=== PATIENT | male | born 1960 | race Caucasian/White ===

== ENCOUNTER 2017-05-12 10:36 | Outpatient (RCR) | payer OTHER | END 2017-05-12 11:30 | disposition home or self-care (01) | LOC: PT 10:36 | DX: M67.912 Unspecified disorder of synovium and tendon, left shoulder (principal) | CPT/HCPCS: G8985-GP ==

== ENCOUNTER 2018-03-21 10:24 | Outpatient (RCR) | payer MEDICARE, OTHER | END 2018-06-19 | disposition home or self-care (01) | LOC: PT | DX: R25.2 Cramp and spasm (principal); R26.89 Other abnormalities of gait and mobility | CPT/HCPCS: G8978-GP; G8979-GP ==

== ENCOUNTER 2018-06-27 08:52 | Emergency (ER) | payer MEDICARE, OTHER ==
[~2018-06-27] VITALS: Ht 182.9 cm; Wt 96.8 kg
[2018-06-27] MEDS ORDERED: BUSPIRONE HCL7.5 MG PO (09:20)
[2018-06-27] MEDS ORDERED: FLOMAX0.4 MG PO (09:20)
[2018-06-27] MEDS ORDERED: ASPIR LOW81 MG PO (09:20)
[2018-06-27] MEDS ORDERED: ALPRAZOLAM0.5 MG PO (09:21)
[2018-06-27 09:31] LABS: EOS # 0.1 (0.04-0.40); EOS % 2.8 % (0.0-4.0); HEMATOCRIT 47.7 % (42.0-52.0); HEMOGLOBIN 16.7 g/dL (13.5-18.0); LYMPH# 1.4 (1.50-4.00); MEAN CELL VOLUME 92 fl (78-100); MEAN CORPUSCULAR HEMOGLOBIN 32 pg (27-31); MEAN CORPUSCULAR HGB CONC 35 g/dL (33-37); MEAN PLATELET VOLUME 9.2 fl (7.4-10.4); MONO # 0.5 (0.20-0.80); NEU # 2.8 (1.40-6.50); PLATELET COUNT 129 K/mm3 (130-400); RED BLOOD COUNT 5.16 M/mm3 (4.20-5.60); RED CELL DISTRIBUTION WIDTH 12.5 % (11.5-14.5); WHITE BLOOD COUNT 4.9 K/mm3 (4.8-10.8)
[2018-06-27 09:41] LABS: CALCIUM 9.1 mg/dL (8.4-10.2); POTASSIUM 3.6 mmol/L (3.6-5.0); TOTAL BILIRUBIN 0.4 mg/dL (0.2-1.3)
[2018-06-27 10:27] VITALS: BP 151/83
== END 2018-06-27 10:41 | disposition short-term general hospital (02) ==
LOC: ED 08:52
PROVIDERS: Nurse Practitioner Primary Care
DX: I63.9 Cerebral infarction, unspecified (principal); F41.9 Anxiety disorder, unspecified; G47.00 Insomnia, unspecified; Z79.899 Other long term (current) drug therapy; Z85.6 Personal history of leukemia; Z85.72 Personal history of non-Hodgkin lymphomas; Z92.21 Personal history of antineoplastic chemotherapy

== ENCOUNTER → 2019-12-12 | Outpatient (CLI) | payer MEDICARE, OTHER ==
[~2019-12-12] MED LIST: ALPRAZOLAM0.5 MG PO; ASPIR LOW81 MG PO; BUSPIRONE HCL7.5 MG PO; FLOMAX0.4 MG PO
== END ==
LOC: LAB 09:36
DX: J30.1 Allergic rhinitis due to pollen (principal)

== ENCOUNTER → 2020-02-02 | Outpatient (CLI) | payer MEDICARE ==
[2020-02-02 09:08] LABS: HEMATOCRIT 44.3 % (42.0-52.0); HEMOGLOBIN 15.5 g/dL (13.5-18.0)
== END ==
LOC: LAB 08:59
DX: R79.89 Other specified abnormal findings of blood chemistry (principal)

== ENCOUNTER → 2020-02-09 | Outpatient (CLI) | payer MEDICARE ==
[2020-02-09 13:11] LABS: EOS # 0.1 (0.04-0.40); EOS % 1.6 % (0.0-4.0); HEMATOCRIT 41.2 % (42.0-52.0); HEMOGLOBIN 14.2 g/dL (13.5-18.0); LYMPH# 1.5 (1.50-4.00); MEAN CELL VOLUME 95 fl (78-100); MEAN CORPUSCULAR HEMOGLOBIN 33 pg (27-31); MEAN CORPUSCULAR HGB CONC 35 g/dL (33-37); MEAN PLATELET VOLUME 9.1 fl (7.4-10.4); MONO # 0.6 (0.20-0.80); NEU # 2.9 (1.40-6.50); PLATELET COUNT 137 K/mm3 (130-400); RED BLOOD COUNT 4.33 M/mm3 (4.20-5.60); RED CELL DISTRIBUTION WIDTH 13.4 % (11.5-14.5); WHITE BLOOD COUNT 5.1 K/mm3 (4.8-10.8)
[2020-02-09 13:44] LABS: ALBUMIN 3.9 g/dL (3.5-5.0); POTASSIUM 4.1 mmol/L (3.5-5.1)
[2020-02-09 13:45] LABS: CALCIUM 8.4 mg/dL (8.3-10.5)
[2020-02-09 13:46] LABS: TOTAL PROTEIN 5.5 g/dL (6.4-8.3)
[2020-02-09 13:48] LABS: TOTAL BILIRUBIN 0.3 mg/dL (0.2-1.2)
[2020-02-09 22:22] LABS: IMMUNOGLOBULIN A <5 mg/dL (63-484); IMMUNOGLOBULIN G <340 mg/dL (540-1822)
[2020-02-09 22:58] LABS: IGM,SERUM 114 mg/dL (22-240)
== END ==
LOC: LAB 12:59
DX: E03.9 Hypothyroidism, unspecified (principal); D69.6 Thrombocytopenia, unspecified

== ENCOUNTER → 2020-02-16 | Outpatient (CLI) | payer MEDICARE ==
[2020-02-16 09:15] LABS: HEMATOCRIT 40.7 % (42.0-52.0)
== END ==
LOC: LAB 09:02
DX: R79.89 Other specified abnormal findings of blood chemistry (principal)

== ENCOUNTER → 2020-03-01 | Outpatient (CLI) | payer MEDICARE ==
[2020-03-01 09:23] LABS: HEMATOCRIT 42.9 % (42.0-52.0); HEMOGLOBIN 14.8 g/dL (13.5-18.0); MEAN CELL VOLUME 95 fl (78-100); MEAN CORPUSCULAR HEMOGLOBIN 33 pg (27-31); MEAN CORPUSCULAR HGB CONC 35 g/dL (33-37); MEAN PLATELET VOLUME 8.8 fl (7.4-10.4); PLATELET COUNT 147 K/mm3 (130-400); RED CELL DISTRIBUTION WIDTH 13.2 % (11.5-14.5); WHITE BLOOD COUNT 4.4 K/mm3 (4.8-10.8)
[2020-03-01 09:34] LABS: ALBUMIN 4.4 g/dL (3.5-5.0)
[2020-03-01 09:35] LABS: POTASSIUM 4.1 mmol/L (3.5-5.1)
[2020-03-01 09:36] LABS: CALCIUM 9.2 mg/dL (8.3-10.5)
[2020-03-01 09:37] LABS: TOTAL PROTEIN 6.2 g/dL (6.4-8.3)
[2020-03-01 09:39] LABS: TOTAL BILIRUBIN 0.6 mg/dL (0.2-1.2)
[2020-03-01 09:43] LABS: LYMPHOCYTE 39 % (20-51); MONOCYTE 9 % (3-10); NEUTROPHILS 50 % (42-75)
[2020-03-01 23:23] LABS: IGM,SERUM 123 mg/dL (22-240); IMMUNOGLOBULIN A <5 mg/dL (63-484); IMMUNOGLOBULIN G <340 mg/dL (540-1822)
== END ==
LOC: LAB 09:06
DX: E03.9 Hypothyroidism, unspecified (principal); R79.89 Other specified abnormal findings of blood chemistry

== ENCOUNTER → 2020-03-08 | Outpatient (CLI) | payer MEDICARE ==
[2020-03-08 09:19] LABS: EOS # 0.1 (0.04-0.40); EOS % 1.8 % (0.0-4.0); HEMATOCRIT 41.6 % (42.0-52.0); HEMOGLOBIN 14.3 g/dL (13.5-18.0); LYMPH# 1.3 (1.50-4.00); MEAN CELL VOLUME 95 fl (78-100); MEAN CORPUSCULAR HEMOGLOBIN 33 pg (27-31); MEAN CORPUSCULAR HGB CONC 34 g/dL (33-37); MEAN PLATELET VOLUME 8.9 fl (7.4-10.4); MONO # 0.4 (0.20-0.80); NEU # 2.2 (1.40-6.50); PLATELET COUNT 148 K/mm3 (130-400); RED BLOOD COUNT 4.37 M/mm3 (4.20-5.60); RED CELL DISTRIBUTION WIDTH 12.9 % (11.5-14.5)
[2020-03-08 09:32] LABS: ALBUMIN 4.2 g/dL (3.5-5.0); POTASSIUM 4.2 mmol/L (3.5-5.1)
[2020-03-08 09:33] LABS: CALCIUM 9.1 mg/dL (8.3-10.5)
[2020-03-08 09:35] LABS: TOTAL PROTEIN 5.8 g/dL (6.4-8.3)
[2020-03-08 09:36] LABS: TOTAL BILIRUBIN 0.5 mg/dL (0.2-1.2)
[2020-03-09 00:26] LABS: IGM,SERUM 110 mg/dL (22-240); IMMUNOGLOBULIN G <340 mg/dL (540-1822)
[2020-03-09 07:36] LABS: IMMUNOGLOBULIN A <5 mg/dL (63-484)
== END ==
LOC: LAB 09:06
DX: C83.71 Burkitt lymphoma, lymph nodes of head, face, and neck (principal); R79.89 Other specified abnormal findings of blood chemistry

== ENCOUNTER → 2020-03-22 | Outpatient (CLI) | payer MEDICARE ==
[2020-03-22 09:32] LABS: EOS # 0.1 (0.04-0.40); EOS % 2.7 % (0.0-4.0); HEMATOCRIT 43.4 % (42.0-52.0); HEMOGLOBIN 14.8 g/dL (13.5-18.0); LYMPH# 1.6 (1.50-4.00); MEAN CELL VOLUME 95 fl (78-100); MEAN CORPUSCULAR HEMOGLOBIN 32 pg (27-31); MEAN CORPUSCULAR HGB CONC 34 g/dL (33-37); MEAN PLATELET VOLUME 9.2 fl (7.4-10.4); MONO # 0.6 (0.20-0.80); NEU # 2.5 (1.40-6.50); PLATELET COUNT 162 K/mm3 (130-400); RED BLOOD COUNT 4.58 M/mm3 (4.20-5.60); RED CELL DISTRIBUTION WIDTH 12.7 % (11.5-14.5); WHITE BLOOD COUNT 4.9 K/mm3 (4.8-10.8)
== END ==
LOC: LAB 09:05
DX: D69.6 Thrombocytopenia, unspecified (principal); R79.89 Other specified abnormal findings of blood chemistry

== ENCOUNTER → 2020-04-24 | Outpatient (CLI) | payer MEDICARE ==
[2020-04-24 07:27] LABS: EOS # 0.1 (0.04-0.40); EOS % 2.3 % (0.0-4.0); HEMATOCRIT 47.3 % (42.0-52.0); HEMOGLOBIN 15.9 g/dL (13.5-18.0); LYMPH# 1.9 (1.50-4.00); MEAN CELL VOLUME 93 fl (78-100); MEAN CORPUSCULAR HEMOGLOBIN 31 pg (27-31); MEAN CORPUSCULAR HGB CONC 34 g/dL (33-37); MEAN PLATELET VOLUME 9.2 fl (7.4-10.4); MONO # 0.6 (0.20-0.80); NEU # 2.6 (1.40-6.50); PLATELET COUNT 151 K/mm3 (130-400); RED CELL DISTRIBUTION WIDTH 12.4 % (11.5-14.5); WHITE BLOOD COUNT 5.2 K/mm3 (4.8-10.8)
== END ==
LOC: LAB 07:09
DX: D69.6 Thrombocytopenia, unspecified (principal); R79.89 Other specified abnormal findings of blood chemistry

== ENCOUNTER → 2020-05-27 | Outpatient (CLI) | payer MEDICARE ==
[2020-05-27 07:32] LABS: EOS # 0.1 (0.04-0.40); EOS % 2.4 % (0.0-4.0); HEMATOCRIT 48.6 % (42.0-52.0); HEMOGLOBIN 16.5 g/dL (13.5-18.0); LYMPH# 1.8 (1.50-4.00); MEAN CELL VOLUME 89 fl (78-100); MEAN CORPUSCULAR HEMOGLOBIN 30 pg (27-31); MEAN CORPUSCULAR HGB CONC 34 g/dL (33-37); MEAN PLATELET VOLUME 9.4 fl (7.4-10.4); MONO # 0.5 (0.20-0.80); NEU # 2.6 (1.40-6.50); PLATELET COUNT 155 K/mm3 (130-400); RED BLOOD COUNT 5.45 M/mm3 (4.20-5.60); RED CELL DISTRIBUTION WIDTH 12.6 % (11.5-14.5); WHITE BLOOD COUNT 5.1 K/mm3 (4.8-10.8)
[2020-05-27 07:52] LABS: ALBUMIN 4.3 g/dL (3.5-5.0); POTASSIUM 4.5 mmol/L (3.5-5.1)
[2020-05-27 07:54] LABS: CALCIUM 9.1 mg/dL (8.3-10.5)
[2020-05-27 07:55] LABS: TOTAL PROTEIN 6.2 g/dL (6.4-8.3)
[2020-05-27 07:57] LABS: TOTAL BILIRUBIN 0.2 mg/dL (0.2-1.2)
[2020-05-27 19:40] LABS: IGM,SERUM 117 mg/dL (22-240); IMMUNOGLOBULIN A <5 mg/dL (63-484); IMMUNOGLOBULIN G <340 mg/dL (540-1822)
[2020-05-30 11:58] LABS: A/G RATIO (PEP) 1.81 (()); BETA GLOBULINS (PEP) 0.7 g/dL (0.7-1.2)
== END ==
LOC: LAB 07:04
PROVIDERS: Obstetrics & Gynecology
DX: C83.71 Burkitt lymphoma, lymph nodes of head, face, and neck (principal)

== ENCOUNTER → 2020-06-03 | Outpatient (CLI) | payer MEDICARE ==
[2020-06-03 10:22] LABS: HEMATOCRIT 47.2 % (42.0-52.0); HEMOGLOBIN 16.1 g/dL (13.5-18.0)
== END ==
LOC: LAB 10:03
DX: R79.89 Other specified abnormal findings of blood chemistry (principal)

== ENCOUNTER → 2020-06-06 | Outpatient (CLI) | payer MEDICARE ==
[~2020-06-06] MED LIST changes: +FISH OIL1 IU PO; +MIRALAX17 GM PO; +NEURONTIN100 M1 PO; +PANTOPRAZOLE SO20 M1 PO; +VITAMIN C PUR1000 MG PO; +VITAMIN D350 MCG PO; +ZINC50 M4 PO
[2020-06-06 10:29] LABS: ALBUMIN 4.4 g/dL (3.5-5.0)
[2020-06-06 10:30] LABS: POTASSIUM 4.3 mmol/L (3.5-5.1)
[2020-06-06 10:31] LABS: CALCIUM 9.2 mg/dL (8.3-10.5)
[2020-06-06 10:32] LABS: TOTAL PROTEIN 6.3 g/dL (6.4-8.3)
[2020-06-06 10:34] LABS: HEMATOCRIT 46.1 % (42.0-52.0); HEMOGLOBIN 15.6 g/dL (13.5-18.0); MEAN CELL VOLUME 89 fl (78-100); MEAN CORPUSCULAR HEMOGLOBIN 30 pg (27-31); MEAN CORPUSCULAR HGB CONC 34 g/dL (33-37); MEAN PLATELET VOLUME 9.8 fl (7.4-10.4); PLATELET COUNT 143 K/mm3 (130-400); RED CELL DISTRIBUTION WIDTH 12.8 % (11.5-14.5); TOTAL BILIRUBIN 0.4 mg/dL (0.2-1.2); WHITE BLOOD COUNT 4.9 K/mm3 (4.8-10.8)
[2020-06-06 11:05] LABS: LYMPHOCYTE 28 % (20-51); MONOCYTE 8 % (3-10); NEUTROPHILS 56 % (42-75)
[2020-06-06 21:51] LABS: FOLLICLE STIMULATING HORMONE 17.7 mIU/mL (1.0-12.0); LUTENIZING HORMONE 4.8 mIU/mL (0.6-12.1)
== END ==
LOC: LAB 09:45
PROVIDERS: Internal Medicine
DX: I67.3 Progressive vascular leukoencephalopathy (principal); K90.9 Intestinal malabsorption, unspecified; N52.9 Male erectile dysfunction, unspecified; E03.9 Hypothyroidism, unspecified; R50.9 Fever, unspecified

== ENCOUNTER → 2020-06-18 | Outpatient (CLI) | payer MEDICARE ==
[~2020-06-18] MED LIST changes: -FISH OIL1 IU PO; -MIRALAX17 GM PO; -NEURONTIN100 M1 PO; -PANTOPRAZOLE SO20 M1 PO; -VITAMIN C PUR1000 MG PO; -VITAMIN D350 MCG PO; -ZINC50 M4 PO
[2020-06-18 11:47] LABS: HEMATOCRIT 44.7 % (42.0-52.0)
== END ==
LOC: LAB 11:32
PROVIDERS: Internal Medicine
DX: E83.110 Hereditary hemochromatosis (principal); N52.9 Male erectile dysfunction, unspecified

== ENCOUNTER → 2020-08-23 | Outpatient (CLI) | payer MEDICARE ==
[~2020-08-23] MED LIST changes: +FISH OIL1 IU PO; +MIRALAX17 GM PO; +NEURONTIN100 M1 PO; +PANTOPRAZOLE SO20 M1 PO; +VITAMIN C PUR1000 MG PO; +VITAMIN D350 MCG PO; +ZINC50 M4 PO
[2020-08-23 12:59] LABS: HEMATOCRIT 46.6 % (42.0-52.0); HEMOGLOBIN 15.7 g/dL (13.5-18.0)
== END ==
LOC: LAB 12:37
PROVIDERS: Internal Medicine
DX: E83.110 Hereditary hemochromatosis (principal)

== ENCOUNTER → 2020-09-06 | Outpatient (CLI) | payer MEDICARE ==
[2020-09-06 12:15] LABS: HEMATOCRIT 42.7 % (42.0-52.0); HEMOGLOBIN 14.2 g/dL (13.5-18.0)
== END ==
LOC: LAB 12:04
PROVIDERS: Internal Medicine
DX: E83.110 Hereditary hemochromatosis (principal)

== ENCOUNTER → 2020-10-01 | Outpatient (CLI) | payer MEDICARE ==
[2020-10-01 11:04] LABS: EOS # 0.2 (0.04-0.40); EOS % 3.6 % (0.0-4.0); HEMATOCRIT 47.4 % (42.0-52.0); HEMOGLOBIN 15.3 g/dL (13.5-18.0); LYMPH# 1.3 (1.50-4.00); MEAN CELL VOLUME 92 fl (78-100); MEAN CORPUSCULAR HEMOGLOBIN 30 pg (27-31); MEAN CORPUSCULAR HGB CONC 32 g/dL (33-37); MEAN PLATELET VOLUME 9.1 fl (7.4-10.4); MONO # 0.5 (0.20-0.80); NEU # 2.4 (1.40-6.50); PLATELET COUNT 147 K/mm3 (130-400); RED BLOOD COUNT 5.15 M/mm3 (4.20-5.60); WHITE BLOOD COUNT 4.4 K/mm3 (4.8-10.8)
[2020-10-01 11:08] LABS: ALBUMIN 4.3 g/dL (3.5-5.0); POTASSIUM 4.5 mmol/L (3.5-5.1)
[2020-10-01 11:09] LABS: CALCIUM 9.2 mg/dL (8.3-10.5)
[2020-10-01 11:10] LABS: TOTAL PROTEIN 6.2 g/dL (6.4-8.3)
[2020-10-01 11:12] LABS: TOTAL BILIRUBIN 0.4 mg/dL (0.2-1.2)
== END ==
LOC: LAB 10:06
PROVIDERS: Internal Medicine
DX: Z00.00 Encounter for general adult medical examination without abnormal findings (principal); Z12.11 Encounter for screening for malignant neoplasm of colon; Z12.5 Encounter for screening for malignant neoplasm of prostate; E78.5 Hyperlipidemia, unspecified; E83.110 Hereditary hemochromatosis

== ENCOUNTER → 2020-10-16 | Outpatient (CLI) | payer MEDICARE ==
[2020-10-16 12:41] LABS: HEMATOCRIT 45.9 % (42.0-52.0); HEMOGLOBIN 15.4 g/dL (13.5-18.0)
== END ==
LOC: LAB 12:30
PROVIDERS: Internal Medicine
DX: E83.110 Hereditary hemochromatosis (principal)

== ENCOUNTER → 2020-10-31 | Outpatient (CLI) | payer MEDICARE ==
[2020-10-31 12:21] LABS: HEMATOCRIT 44.6 % (42.0-52.0); HEMOGLOBIN 15.2 g/dL (13.5-18.0)
== END ==
LOC: LAB 12:11
PROVIDERS: Internal Medicine
DX: E83.110 Hereditary hemochromatosis (principal)

== ENCOUNTER 2020-11-07 13:06 | Emergency (ER) | payer MEDICARE ==
[~2020-11-07 13:06] MED LIST changes: -FISH OIL1 IU PO; -MIRALAX17 GM PO; -NEURONTIN100 M1 PO; -PANTOPRAZOLE SO20 M1 PO; -VITAMIN C PUR1000 MG PO; -VITAMIN D350 MCG PO; -ZINC50 M4 PO
[2020-11-07] MEDS ORDERED: PANTOPRAZOLE SO20 M1 PO (13:18)
[2020-11-07 14:42] LABS: ALBUMIN 4.1 g/dL (3.5-5.0); POTASSIUM 4.6 mmol/L (3.5-5.1); SODIUM 142 mmol/L (136-145)
[2020-11-07 14:45] LABS: GLUCOSE 100 mg/dL (75-110); TOTAL PROTEIN 5.7 g/dL (6.4-8.3)
[2020-11-07 14:46] LABS: CARBON DIOXIDE 27 mmol/L (22-29)
[2020-11-07 14:47] LABS: TOTAL BILIRUBIN 0.5 mg/dL (0.2-1.2)
[2020-11-07 14:50] LABS: AST-SGOT 15 U/L (5-34)
[2020-11-07 14:51] LABS: ALT/SGPT 15 U/L (0-55)
[2020-11-07 15:02] LABS: TROPONIN-I < 0.03 ng/mL (<0.030)
[2020-11-07 16:29] LABS: RED BLOOD COUNT 4.52 M/mm3 (4.20-5.60); WHITE BLOOD COUNT 3.9 K/mm3 (4.8-10.8)
[2020-11-07 16:30] LABS: HEMATOCRIT 40.3 % (42.0-52.0); HEMOGLOBIN 13.5 g/dL (13.5-18.0)
[2020-11-07 16:31] LABS: MEAN CELL VOLUME 89 fl (78-100)
[2020-11-07 16:32] LABS: MEAN CORPUSCULAR HEMOGLOBIN 30 pg (27-31); MEAN CORPUSCULAR HGB CONC 34 g/dL (33-37); MEAN PLATELET VOLUME 10.1 fl (7.4-10.4); PLATELET COUNT 146 K/mm3 (130-400); RED CELL DISTRIBUTION WIDTH 13.8 % (11.5-14.5)
[2020-11-07 16:33] LABS: EOS % 2.1 % (0.0-4.0)
[2020-11-07 16:34] LABS: BASO # 0.01 (0.02-0.10); EOS # 0.08 (0.04-0.40); LYMPH# 1.26 (1.50-4.00); MONO # 0.49 (0.20-0.80)
[2020-11-07 19:07] VITALS: BP 130/82
[2021-03-19] MEDS ORDERED: MIRALAX17 GM PO (10:10)
[2021-03-19] MEDS ORDERED: FISH OIL1 IU PO (10:10)
[2021-03-19] MEDS ORDERED: NEURONTIN100 M1 PO (10:10)
[2021-03-19] MEDS ORDERED: VITAMIN C PUR1000 MG PO (10:11)
[2021-03-19] MEDS ORDERED: FLOMAX0.4 MG PO (10:11)
[2021-03-19] MEDS ORDERED: VITAMIN D350 MCG PO (10:11)
[2021-03-19] MEDS ORDERED: ZINC50 M4 PO (10:12)
== END 2020-11-07 19:07 | disposition home or self-care (01) ==
LOC: ED 13:06
PROVIDERS: Nurse Practitioner Family
DX: R07.89 Other chest pain (principal); I95.1 Orthostatic hypotension; R06.02 Shortness of breath; R53.81 Other malaise; F41.9 Anxiety disorder, unspecified; G47.00 Insomnia, unspecified; Z85.72 Personal history of non-Hodgkin lymphomas; Z85.841 Personal history of malignant neoplasm of brain; Z87.891 Personal history of nicotine dependence; Z79.82 Long term (current) use of aspirin
CPT/HCPCS: J7030

== ENCOUNTER → 2020-11-20 | Outpatient (CLI) | payer MEDICARE ==
[2020-11-07 19:07] VITALS: BP 130/82
[~2020-11-20] MED LIST changes: +FISH OIL1 IU PO; +MIRALAX17 GM PO; +NEURONTIN100 M1 PO; +PANTOPRAZOLE SO20 M1 PO; +VITAMIN C PUR1000 MG PO; +VITAMIN D350 MCG PO; +ZINC50 M4 PO
== END ==
LOC: AMSURD 08:03
DX: R07.9 Chest pain, unspecified (principal)

== ENCOUNTER → 2020-12-12 | Outpatient (CLI) | payer MEDICARE ==
[2020-12-12 12:49] LABS: HEMATOCRIT 44.8 % (42.0-52.0); HEMOGLOBIN 14.9 g/dL (13.5-18.0)
== END ==
LOC: LAB 12:38
PROVIDERS: Internal Medicine
DX: E83.110 Hereditary hemochromatosis (principal)

== ENCOUNTER → 2021-01-25 | Outpatient (CLI) | payer MEDICARE | LOC: LAB 09:23 | DX: Z20.822 Contact with and (suspected) exposure to COVID-19 (principal) ==

== ENCOUNTER → 2021-02-13 | Outpatient (CLI) | payer MEDICARE ==
[2021-02-13 12:06] LABS: HEMATOCRIT 47.7 % (42.0-52.0); HEMOGLOBIN 15.8 g/dL (13.5-18.0)
== END ==
LOC: LAB 11:53
PROVIDERS: Internal Medicine
DX: E83.110 Hereditary hemochromatosis (principal)

== ENCOUNTER → 2021-02-24 | Outpatient (CLI) | payer MEDICARE ==
[2021-02-24 12:51] LABS: ALBUMIN 4.2 g/dL (3.5-5.0)
[2021-02-24 12:52] LABS: POTASSIUM 4.4 mmol/L (3.5-5.1)
[2021-02-24 12:53] LABS: CALCIUM 9.7 mg/dL (8.3-10.5)
[2021-02-24 12:54] LABS: TOTAL PROTEIN 6.2 g/dL (6.4-8.3)
[2021-02-24 12:56] LABS: TOTAL BILIRUBIN 0.5 mg/dL (0.2-1.2)
[2021-02-24 13:17] LABS: BASO # 0.02 (0.02-0.10); EOS # 0.09 (0.04-0.40); HEMATOCRIT 45.9 % (42.0-52.0); HEMOGLOBIN 15.2 g/dL (13.5-18.0); LYMPH# 1.46 (1.50-4.00); MEAN CELL VOLUME 90 fl (78-100); MEAN CORPUSCULAR HEMOGLOBIN 30 pg (27-31); MEAN CORPUSCULAR HGB CONC 33 g/dL (33-37); MEAN PLATELET VOLUME 9.4 fl (7.4-10.4); MONO # 0.46 (0.20-0.80); PLATELET COUNT 151 K/mm3 (130-400); RED BLOOD COUNT 5.09 M/mm3 (4.20-5.60); RED CELL DISTRIBUTION WIDTH 13.9 % (11.5-14.5); WHITE BLOOD COUNT 4.4 K/mm3 (4.8-10.8)
[2021-02-25 11:22] LABS: IGM,SERUM 124 mg/dL (22-240)
[2021-02-25 13:39] LABS: IMMUNOGLOBULIN A <5 mg/dL (63-484); IMMUNOGLOBULIN G <340 mg/dL (540-1822)
== END ==
LOC: LAB 12:30
DX: C83.71 Burkitt lymphoma, lymph nodes of head, face, and neck (principal)

== ENCOUNTER → 2021-03-19 | Outpatient (CLI) | payer MEDICARE ==
[~2021-03-19] VITALS: Ht 182.9 cm; Wt 96.8 kg
[2021-03-19 09:15] VITALS: BP 108/80
[2021-03-19 10:40] VITALS: BP 124/81
[2021-03-21 20:56] LABS: ADRENOCORTICOTROPIC HORMONE 38 pg/mL (5-27)
== END ==
LOC: AMSURD 05:30
PROVIDERS: Internal Medicine
DX: E27.40 Unspecified adrenocortical insufficiency (principal)
CPT/HCPCS: J0834

== ENCOUNTER → 2021-03-27 | Outpatient (CLI) | payer MEDICARE | LOC: LAB 13:22 | DX: Z20.822 Contact with and (suspected) exposure to COVID-19 (principal) ==

== ENCOUNTER → 2021-04-29 | Outpatient (CLI) | payer MEDICARE ==
[2021-04-29 12:13] LABS: HEMOGLOBIN 15.5 g/dL (13.5-18.0)
== END ==
LOC: LAB 12:02
PROVIDERS: Internal Medicine
DX: E83.110 Hereditary hemochromatosis (principal)

== ENCOUNTER → 2021-06-26 | Outpatient (CLI) | payer MEDICARE ==
[2021-06-26 13:20] LABS: ALBUMIN 4.5 g/dL (3.5-5.0); POTASSIUM 4.5 mmol/L (3.5-5.1)
[2021-06-26 13:21] LABS: CALCIUM 9.4 mg/dL (8.3-10.5)
[2021-06-26 13:23] LABS: TOTAL PROTEIN 6.2 g/dL (6.4-8.3)
[2021-06-26 13:24] LABS: TOTAL BILIRUBIN 0.6 mg/dL (0.2-1.2)
[2021-06-26 15:57] LABS: BASO # 0.02 K/mm3 (0.02-0.10); EOS # 0.11 K/mm3 (0.04-0.40); EOS % 2.3 % (0.0-4.0); HEMATOCRIT 47.9 % (42.0-52.0); LYMPH# 1.63 K/mm3 (1.50-4.00); MEAN CELL VOLUME 91 fl (78-100); MEAN CORPUSCULAR HEMOGLOBIN 31 pg (27-31); MEAN CORPUSCULAR HGB CONC 33 g/dL (33-37); MEAN PLATELET VOLUME 10.1 fl (7.4-10.4); MONO # 0.54 K/mm3 (0.20-0.80); NEU # 2.41 K/mm3 (1.40-6.50); PLATELET COUNT 142 K/mm3 (130-400); RED BLOOD COUNT 5.25 M/mm3 (4.20-5.60); RED CELL DISTRIBUTION WIDTH 13.3 % (11.5-14.5); WHITE BLOOD COUNT 4.7 K/mm3 (4.8-10.8)
[2021-06-26 23:30] LABS: IMMUNOGLOBULIN G <340 mg/dL (540-1822)
[2021-06-26 23:55] LABS: IGM,SERUM 144 mg/dL (22-240)
[2021-07-01 09:47] LABS: A/G RATIO (PEP) 1.51 (()); BETA GLOBULINS (PEP) 0.9 g/dL (0.7-1.2)
== END ==
LOC: LAB 12:28
DX: Z00.01 Encounter for general adult medical examination with abnormal findings (principal); C83.71 Burkitt lymphoma, lymph nodes of head, face, and neck; E83.110 Hereditary hemochromatosis

== ENCOUNTER 2021-08-18 10:30 | Outpatient (RCR) | payer MEDICARE | END 2021-09-11 | disposition home or self-care (01) | LOC: CARDREHAB | DX: Z48.812 Encounter for surgical aftercare following surgery on the circulatory system (principal); Z98.890 Other specified postprocedural states; Z87.74 Personal history of (corrected) congenital malformations of heart and circulatory system; Z95.0 Presence of cardiac pacemaker ==

== ENCOUNTER 2021-09-16 10:30 | Outpatient (RCR) | payer MEDICARE ==
[2021-10-06] MEDS ORDERED: MIDODRINE HCL10 MG PO (18:10)
[2021-10-06] MEDS ORDERED: CLOPIDOGREL75 M2 PO (18:12)
== END 2021-10-11 | disposition home or self-care (01) ==
LOC: CARDREHAB
DX: Z48.812 Encounter for surgical aftercare following surgery on the circulatory system (principal); Z87.74 Personal history of (corrected) congenital malformations of heart and circulatory system; Z95.0 Presence of cardiac pacemaker

== ENCOUNTER 2021-10-06 17:50 | Emergency (ER) | payer MEDICARE ==
[~2021-10-06] VITALS: Ht 182.9 cm; Wt 92.8 kg
[2021-10-06] MEDS ORDERED: MIDODRINE HCL10 MG PO (18:10)
[2021-10-06] MEDS ORDERED: CLOPIDOGREL75 M2 PO (18:12)
[2021-10-06 18:57] LABS: URINE APPEARANCE CLEAR; URINE BILIRUBIN NN (NEGATIVE); URINE BLOOD TRACE (NEGATIVE); URINE COLOR YELLOW; URINE GLUCOSE NEGATIVE (NEGATIVE); URINE KETONE NEGATIVE (NEGATIVE); URINE LEUKOCYTE ESTERASE NEGATIVE (NEGATIVE); URINE NITRATE NEGATIVE (NEGATIVE); URINE PROTEIN(semi-quant) TRACE (NEGATIVE); URINE UROBILINOGEN NORMAL (NORMAL); URINE WBC 0-1 /hpf (0-3)
[2021-10-06 19:03] LABS: BASO # 0.03 K/mm3 (0.02-0.10); EOS # 0.19 K/mm3 (0.04-0.40); EOS % 4.5 % (0.0-4.0); HEMATOCRIT 44.7 % (42.0-52.0); HEMOGLOBIN 14.7 g/dL (13.5-18.0); LYMPH# 1.26 K/mm3 (1.50-4.00); MEAN CELL VOLUME 93 fl (78-100); MEAN CORPUSCULAR HEMOGLOBIN 31 pg (27-31); MEAN CORPUSCULAR HGB CONC 33 g/dL (33-37); MEAN PLATELET VOLUME 9.4 fl (7.4-10.4); MONO # 0.59 K/mm3 (0.20-0.80); NEU # 2.17 K/mm3 (1.40-6.50); PLATELET COUNT 124 K/mm3 (130-400); RED CELL DISTRIBUTION WIDTH 13.6 % (11.5-14.5); WHITE BLOOD COUNT 4.2 K/mm3 (4.8-10.8)
[2021-10-06 19:12] LABS: ALBUMIN 4.1 g/dL (3.5-5.0); POTASSIUM 5.2 mmol/L (3.5-5.1); SODIUM 143 mmol/L (136-145)
[2021-10-06 19:14] LABS: CALCIUM 9.3 mg/dL (8.3-10.5)
[2021-10-06 19:15] LABS: GLUCOSE 96 mg/dL (75-110); TOTAL PROTEIN 5.9 g/dL (6.4-8.3)
[2021-10-06 19:16] LABS: CARBON DIOXIDE 27 mmol/L (22-29)
[2021-10-06 19:17] LABS: TOTAL BILIRUBIN 0.5 mg/dL (0.2-1.2)
[2021-10-06 19:20] LABS: AST-SGOT 16 U/L (5-34)
[2021-10-06 19:21] LABS: ALT/SGPT 17 U/L (0-55)
[2021-10-06 19:33] LABS: TROPONIN-I < 0.030 ng/mL (<0.030)
[2021-10-06 20:18] VITALS: BP 156/92
== END 2021-10-06 20:18 | disposition home or self-care (01) ==
LOC: ED 17:50
PROVIDERS: Nurse Practitioner
DX: I10 Essential (primary) hypertension (principal); F41.1 Generalized anxiety disorder; Z98.890 Other specified postprocedural states

== ENCOUNTER → 2021-11-07 | Outpatient (CLI) | payer MEDICARE ==
[~2021-11-07] MED LIST changes: +CLOPIDOGREL75 M2 PO; +MIDODRINE HCL10 MG PO
[2021-11-07 08:04] LABS: BASO # 0.02 K/mm3 (0.02-0.10); EOS # 0.12 K/mm3 (0.04-0.40); EOS % 2.3 % (0.0-4.0); HEMATOCRIT 47.5 % (42.0-52.0); HEMOGLOBIN 16.1 g/dL (13.5-18.0); LYMPH# 1.71 K/mm3 (1.50-4.00); MEAN CELL VOLUME 93 fl (78-100); MEAN CORPUSCULAR HEMOGLOBIN 31 pg (27-31); MEAN CORPUSCULAR HGB CONC 34 g/dL (33-37); MEAN PLATELET VOLUME 9.8 fl (7.4-10.4); MONO # 0.52 K/mm3 (0.20-0.80); NEU # 2.94 K/mm3 (1.40-6.50); PLATELET COUNT 113 K/mm3 (130-400); RED BLOOD COUNT 5.13 M/mm3 (4.20-5.60); RED CELL DISTRIBUTION WIDTH 13.4 % (11.5-14.5); WHITE BLOOD COUNT 5.3 K/mm3 (4.8-10.8)
[2021-11-07 08:16] LABS: ALBUMIN 4.3 g/dL (3.5-5.0); POTASSIUM 4.2 mmol/L (3.5-5.1)
[2021-11-07 08:17] LABS: CALCIUM 9.4 mg/dL (8.3-10.5)
[2021-11-07 08:19] LABS: TOTAL PROTEIN 6.1 g/dL (6.4-8.3)
[2021-11-07 08:20] LABS: TOTAL BILIRUBIN 0.7 mg/dL (0.2-1.2)
[2021-11-11 17:51] LABS: T3 FREE 3.3 pg/mL (1.7-3.7)
== END ==
LOC: LAB 07:19
PROVIDERS: Internal Medicine
DX: Z12.5 Encounter for screening for malignant neoplasm of prostate (principal); E83.110 Hereditary hemochromatosis; G99.0 Autonomic neuropathy in diseases classified elsewhere; E78.2 Mixed hyperlipidemia; K90.9 Intestinal malabsorption, unspecified; I67.3 Progressive vascular leukoencephalopathy; G62.9 Polyneuropathy, unspecified

== ENCOUNTER → 2021-11-13 | Outpatient (CLI) | payer MEDICARE | LOC: LAB 09:41 | DX: Z00.01 Encounter for general adult medical examination with abnormal findings (principal); J70.4 Drug-induced interstitial lung disorders, unspecified; N52.9 Male erectile dysfunction, unspecified; K90.9 Intestinal malabsorption, unspecified; M25.50 Pain in unspecified joint; G62.9 Polyneuropathy, unspecified; I67.3 Progressive vascular leukoencephalopathy; R79.89 Other specified abnormal findings of blood chemistry; Z28.39 Other underimmunization status ==

== ENCOUNTER → 2021-11-27 | Outpatient (CLI) | payer MEDICARE ==
[2021-11-27 09:06] LABS: BASO # 0.03 K/mm3 (0.02-0.10); EOS # 0.08 K/mm3 (0.04-0.40); EOS % 1.9 % (0.0-4.0); HEMATOCRIT 44.9 % (42.0-52.0); HEMOGLOBIN 15.4 g/dL (13.5-18.0); LYMPH# 1.84 K/mm3 (1.50-4.00); MEAN CELL VOLUME 90 fl (78-100); MEAN CORPUSCULAR HEMOGLOBIN 31 pg (27-31); MEAN CORPUSCULAR HGB CONC 34 g/dL (33-37); MEAN PLATELET VOLUME 9.1 fl (7.4-10.4); MONO # 0.49 K/mm3 (0.20-0.80); NEU # 1.82 K/mm3 (1.40-6.50); PLATELET COUNT 119 K/mm3 (130-400); RED BLOOD COUNT 4.97 M/mm3 (4.20-5.60); RED CELL DISTRIBUTION WIDTH 13.5 % (11.5-14.5); WHITE BLOOD COUNT 4.3 K/mm3 (4.8-10.8)
[2021-11-27 09:08] LABS: ALBUMIN 4.1 g/dL (3.5-5.0); POTASSIUM 4.4 mmol/L (3.5-5.1)
[2021-11-27 09:09] LABS: CALCIUM 8.9 mg/dL (8.3-10.5)
[2021-11-27 09:12] LABS: TOTAL BILIRUBIN 0.5 mg/dL (0.2-1.2)
== END ==
LOC: LAB 08:44
PROVIDERS: Registered Nurse
DX: C83.71 Burkitt lymphoma, lymph nodes of head, face, and neck (principal)

== ENCOUNTER → 2021-12-18 | Outpatient (CLI) | payer MEDICARE | LOC: LAB 15:12 | DX: K14.9 Disease of tongue, unspecified (principal) ==

== ENCOUNTER → 2021-12-31 | Outpatient (CLI) | payer MEDICARE ==
[~2021-12-31] MED LIST changes: +ATORVASTATIN CA20 MG PO; +BACTRIM DS TAB1 EACH PO; +LEVOTHYROXINE0.05 MG PO; +SODIUM CHLORIDE1 GM PO
== END ==
LOC: LAB 12:14
DX: E03.9 Hypothyroidism, unspecified (principal)

== ENCOUNTER 2022-01-02 06:47 | Emergency (ER) | payer MEDICARE ==
[~2022-01-02] VITALS: Wt 90.9 kg
[~2022-01-02 06:47] MED LIST changes: -ATORVASTATIN CA20 MG PO; -BACTRIM DS TAB1 EACH PO; -LEVOTHYROXINE0.05 MG PO; -SODIUM CHLORIDE1 GM PO
[2022-01-02 07:14] LABS: BASO # 0.01 K/mm3 (0.02-0.10); EOS % 1.1 % (0.0-4.0); HEMATOCRIT 49.9 % (42.0-52.0); HEMOGLOBIN 16.9 g/dL (13.5-18.0); LYMPH# 1.97 K/mm3 (1.50-4.00); MEAN CELL VOLUME 92 fl (78-100); MEAN CORPUSCULAR HEMOGLOBIN 31 pg (27-31); MEAN CORPUSCULAR HGB CONC 34 g/dL (33-37); MONO # 0.78 K/mm3 (0.20-0.80); NEU # 5.87 K/mm3 (1.40-6.50); RED BLOOD COUNT 5.43 M/mm3 (4.20-5.60); RED CELL DISTRIBUTION WIDTH 13.5 % (11.5-14.5); WHITE BLOOD COUNT 8.7 K/mm3 (4.8-10.8)
[2022-01-02 07:28] LABS: ALBUMIN 4.7 g/dL (3.5-5.0); POTASSIUM 3.8 mmol/L (3.5-5.1)
[2022-01-02 07:30] LABS: CALCIUM 9.8 mg/dL (8.3-10.5)
[2022-01-02 07:31] LABS: TOTAL PROTEIN 6.7 g/dL (6.4-8.3)
[2022-01-02 07:33] LABS: TOTAL BILIRUBIN 1.1 mg/dL (0.2-1.2)
[2022-01-02 07:37] LABS: PLATELET COUNT 115 K/mm3 (130-400)
[2022-01-02] MEDS ORDERED: LEVOTHYROXINE0.05 MG PO (09:15)
[2022-01-02] MEDS ORDERED: ATORVASTATIN CA20 MG PO (09:16)
[2022-01-02] MEDS ORDERED: FLOMAX0.4 MG PO (09:18)
[2022-01-02] MEDS ORDERED: SODIUM CHLORIDE1 GM PO (09:19)
[2022-01-02] MEDS ORDERED: BACTRIM DS TAB1 EACH PO (09:41)
[2022-01-02 10:12] LABS: URINE APPEARANCE CLOUDY; URINE COLOR RED
[2022-01-02 10:29] VITALS: BP 109/85
== END 2022-01-02 10:29 | disposition home or self-care (01) ==
LOC: ED 06:47
PROVIDERS: Family Medicine
DX: R31.0 Gross hematuria (principal); Z28.310 Unvaccinated for COVID-19
CPT/HCPCS: J0696; Q9967

== ENCOUNTER → 2022-02-10 | Outpatient (CLI) | payer MEDICARE ==
[~2022-02-10] MED LIST changes: +ATORVASTATIN CA20 MG PO; +BACTRIM DS TAB1 EACH PO; +LEVOTHYROXINE0.05 MG PO; +SODIUM CHLORIDE1 GM PO
[2022-02-10 08:25] LABS: BASO # 0.02 K/mm3 (0.02-0.10); EOS # 0.07 K/mm3 (0.04-0.40); EOS % 1.4 % (0.0-4.0); HEMATOCRIT 46.4 % (42.0-52.0); LYMPH# 1.77 K/mm3 (1.50-4.00); MEAN CELL VOLUME 93 fl (78-100); MEAN CORPUSCULAR HEMOGLOBIN 32 pg (27-31); MEAN CORPUSCULAR HGB CONC 35 g/dL (33-37); MEAN PLATELET VOLUME 9.4 fl (7.4-10.4); MONO # 0.47 K/mm3 (0.20-0.80); NEU # 2.82 K/mm3 (1.40-6.50); PLATELET COUNT 154 K/mm3 (130-400); RED BLOOD COUNT 4.97 M/mm3 (4.20-5.60); RED CELL DISTRIBUTION WIDTH 13.1 % (11.5-14.5); WHITE BLOOD COUNT 5.2 K/mm3 (4.8-10.8)
[2022-02-10 08:32] LABS: ALBUMIN 4.4 g/dL (3.5-5.0); POTASSIUM 4.1 mmol/L (3.5-5.1)
[2022-02-10 08:33] LABS: CALCIUM 9.6 mg/dL (8.3-10.5)
[2022-02-10 08:35] LABS: TOTAL PROTEIN 6.3 g/dL (6.4-8.3)
== END ==
LOC: LAB 08:02
PROVIDERS: Internal Medicine
DX: I49.5 Sick sinus syndrome (principal); E83.110 Hereditary hemochromatosis; E03.9 Hypothyroidism, unspecified

== ENCOUNTER → 2022-02-12 | Outpatient (CLI) | payer MEDICARE ==
[2022-02-12 12:35] LABS: HEMATOCRIT 46.8 % (42.0-52.0); HEMOGLOBIN 15.9 g/dL (13.5-18.0)
== END ==
LOC: LAB 12:23
PROVIDERS: Internal Medicine
DX: E83.110 Hereditary hemochromatosis (principal)

== ENCOUNTER → 2022-07-02 | Outpatient (CLI) | payer MEDICARE ==
[2022-07-02 23:23] LABS: PROLACTIN AMS 3.6 ng/mL (3.5-19.4); TESTOSTERONE 707 ng/dL (221-716)
[2022-07-02 23:29] LABS: IGM,SERUM 173 mg/dL (22-240); IMMUNOGLOBULIN A <5 mg/dL (101-645); IMMUNOGLOBULIN G <340 mg/dL (540-1822)
== END ==
LOC: LAB 14:16
PROVIDERS: Internal Medicine
DX: C83.70 Burkitt lymphoma, unspecified site (principal); I67.3 Progressive vascular leukoencephalopathy; G62.9 Polyneuropathy, unspecified; M25.50 Pain in unspecified joint; K90.9 Intestinal malabsorption, unspecified; N52.9 Male erectile dysfunction, unspecified; J70.4 Drug-induced interstitial lung disorders, unspecified; E83.110 Hereditary hemochromatosis; E03.9 Hypothyroidism, unspecified; R79.89 Other specified abnormal findings of blood chemistry

== ENCOUNTER → 2022-10-01 | Outpatient (CLI) | payer MEDICARE ==
[2022-10-01 11:58] LABS: HEMOGLOBIN 16.9 g/dL (13.5-18.0); RED BLOOD COUNT 5.27 M/mm3 (4.20-5.60); WHITE BLOOD COUNT 5.7 K/mm3 (4.8-10.8)
[2022-10-01 11:59] LABS: BASO # 0.02 K/mm3 (0.02-0.10); EOS # 0.09 K/mm3 (0.04-0.40); EOS % 1.6 % (0.0-4.0); HEMATOCRIT 49.1 % (42.0-52.0); LYMPH# 1.85 K/mm3 (1.50-4.00); MEAN CELL VOLUME 93 fl (78-100); MEAN CORPUSCULAR HEMOGLOBIN 32 pg (27-31); MEAN CORPUSCULAR HGB CONC 34 g/dL (33-37); MEAN PLATELET VOLUME 9.2 fl (7.4-10.4); MONO # 0.63 K/mm3 (0.20-0.80); PLATELET COUNT 150 K/mm3 (130-400); RED CELL DISTRIBUTION WIDTH 12.5 % (11.5-14.5)
[2022-10-01 12:04] LABS: POTASSIUM 4.5 mmol/L (3.5-5.1)
[2022-10-01 12:05] LABS: CALCIUM 9.7 mg/dL (8.3-10.5)
== END ==
LOC: LAB 11:37
PROVIDERS: Internal Medicine Cardiovascular Disease
DX: I25.10 Atherosclerotic heart disease of native coronary artery without angina pectoris (principal); I95.1 Orthostatic hypotension; I49.5 Sick sinus syndrome; R09.89 Other specified symptoms and signs involving the circulatory and respiratory systems

== ENCOUNTER → 2023-04-15 | Outpatient (CLI) | payer MEDICARE ==
[2023-04-15 15:45] LABS: BASO # 0.01 K/mm3 (0.02-0.10); EOS # 0.17 K/mm3 (0.04-0.40); EOS % 3.3 % (0.0-4.0); HEMATOCRIT 45.3 % (42.0-52.0); HEMOGLOBIN 15.6 g/dL (13.5-18.0); LYMPH# 1.74 K/mm3 (1.50-4.00); MEAN CELL VOLUME 93 fl (78-100); MEAN CORPUSCULAR HEMOGLOBIN 32 pg (27-31); MEAN CORPUSCULAR HGB CONC 34 g/dL (33-37); MEAN PLATELET VOLUME 9.5 fl (7.4-10.4); NEU # 2.63 K/mm3 (1.40-6.50); PLATELET COUNT 141 K/mm3 (130-400); RED BLOOD COUNT 4.89 M/mm3 (4.20-5.60); RED CELL DISTRIBUTION WIDTH 12.5 % (11.5-14.5); WHITE BLOOD COUNT 5.2 K/mm3 (4.8-10.8)
[2023-04-15 15:49] LABS: ALBUMIN 4.2 g/dL (3.4-4.8)
[2023-04-15 15:50] LABS: CALCIUM 9.2 mg/dL (8.3-10.5)
[2023-04-15 15:53] LABS: TOTAL BILIRUBIN 0.6 mg/dL (0.2-1.2)
== END ==
LOC: LAB 15:24
PROVIDERS: Internal Medicine
DX: C83.70 Burkitt lymphoma, unspecified site (principal); E83.110 Hereditary hemochromatosis; E03.9 Hypothyroidism, unspecified; K90.9 Intestinal malabsorption, unspecified; I67.3 Progressive vascular leukoencephalopathy

== ENCOUNTER → 2023-07-13 | Outpatient (CLI) | payer MEDICARE | LOC: LAB 19:18 | DX: Z20.822 Contact with and (suspected) exposure to COVID-19 (principal) ==

== ENCOUNTER → 2023-07-15 | Outpatient (CLI) | payer MEDICARE ==
[2023-07-15 07:12] LABS: BASO # 0.02 K/mm3 (0.02-0.10); EOS # 0.08 K/mm3 (0.04-0.40); EOS % 1.3 % (0.0-4.0); HEMATOCRIT 47.4 % (42.0-52.0); HEMOGLOBIN 16.5 g/dL (13.5-18.0); LYMPH# 2.27 K/mm3 (1.50-4.00); MEAN CELL VOLUME 93 fl (78-100); MEAN CORPUSCULAR HEMOGLOBIN 32 pg (27-31); MEAN CORPUSCULAR HGB CONC 35 g/dL (33-37); MEAN PLATELET VOLUME 9.2 fl (7.4-10.4); NEU # 3.05 K/mm3 (1.40-6.50); PLATELET COUNT 150 K/mm3 (130-400); RED BLOOD COUNT 5.12 M/mm3 (4.20-5.60); RED CELL DISTRIBUTION WIDTH 12.6 % (11.5-14.5)
[2023-07-15 07:28] LABS: ALBUMIN 4.4 g/dL (3.4-4.8)
[2023-07-15 07:29] LABS: CALCIUM 9.3 mg/dL (8.3-10.5)
[2023-07-15 07:32] LABS: TOTAL BILIRUBIN 0.55 mg/dL (0.2-1.2)
== END ==
LOC: LAB 06:57
PROVIDERS: Internal Medicine
DX: E83.110 Hereditary hemochromatosis (principal); E03.9 Hypothyroidism, unspecified; K90.9 Intestinal malabsorption, unspecified; E78.2 Mixed hyperlipidemia

== ENCOUNTER → 2023-07-21 | Outpatient (CLI) | payer MEDICARE ==
[~2023-07-21] MED LIST changes: +Iohexol 300 - 100 ML VIAL IV ONE
== END ==
LOC: RAD 08:53
DX: C83.70 Burkitt lymphoma, unspecified site (principal)
CPT/HCPCS: Q9967

== ENCOUNTER → 2023-10-22 | Outpatient (CLI) | payer MEDICARE ==
[~2023-10-22] MED LIST changes: -Iohexol 300 - 100 ML VIAL IV ONE
[2023-10-22 09:27] LABS: URINE APPEARANCE CLEAR (CLEAR); URINE COLOR YELLOW (YELLOW)
[2023-10-22 09:28] LABS: URINE BILIRUBIN NEGATIVE (NEGATIVE); URINE BLOOD TRACE-INTACT (NEGATIVE); URINE GLUCOSE NEGATIVE (NEGATIVE); URINE KETONE NEGATIVE (NEGATIVE); URINE LEUKOCYTE ESTERASE NEGATIVE (NEGATIVE); URINE NITRATE NEGATIVE (NEGATIVE); URINE PROTEIN(semi-quant) NEGATIVE (NEGATIVE); URINE WBC 0-1 /hpf (0-3)
== END ==
LOC: LAB 08:37
PROVIDERS: Internal Medicine
DX: N39.0 Urinary tract infection, site not specified (principal)

== ENCOUNTER → 2023-11-24 | Outpatient (CLI) | payer MEDICARE ==
[2023-11-24 07:19] LABS: URINE WBC 0 /hpf (0-3)
[2023-11-24 07:28] LABS: BASO # 0.01 K/mm3 (0.02-0.10); EOS # 0.09 K/mm3 (0.04-0.40); EOS % 1.5 % (0.0-4.0); HEMATOCRIT 48.3 % (42.0-52.0); HEMOGLOBIN 16.4 g/dL (13.5-18.0); LYMPH# 1.87 K/mm3 (1.50-4.00); MEAN CELL VOLUME 94 fl (78-100); MEAN CORPUSCULAR HEMOGLOBIN 32 pg (27-31); MEAN CORPUSCULAR HGB CONC 34 g/dL (33-37); MEAN PLATELET VOLUME 9.1 fl (7.4-10.4); MONO # 0.57 K/mm3 (0.20-0.80); NEU # 3.62 K/mm3 (1.40-6.50); PLATELET COUNT 144 K/mm3 (130-400); RED BLOOD COUNT 5.12 M/mm3 (4.20-5.60); RED CELL DISTRIBUTION WIDTH 12.5 % (11.5-14.5); WHITE BLOOD COUNT 6.2 K/mm3 (4.8-10.8)
[2023-11-24 07:47] LABS: URINE APPEARANCE CLEAR (CLEAR); URINE BILIRUBIN NEGATIVE (NEGATIVE); URINE BLOOD NEGATIVE (NEGATIVE); URINE COLOR YELLOW (YELLOW); URINE GLUCOSE NEGATIVE (NEGATIVE); URINE KETONE NEGATIVE (NEGATIVE); URINE LEUKOCYTE ESTERASE NEGATIVE (NEGATIVE); URINE NITRATE NEGATIVE (NEGATIVE); URINE PROTEIN(semi-quant) NEGATIVE (NEGATIVE)
== END ==
LOC: LAB 07:08
PROVIDERS: Internal Medicine
DX: N39.0 Urinary tract infection, site not specified (principal); C83.70 Burkitt lymphoma, unspecified site

== ENCOUNTER → 2023-12-24 | Outpatient (CLI) | payer MEDICARE ==
[2023-12-24 23:43] LABS: IGM,SERUM 203 mg/dL (22-240); IMMUNOGLOBULIN A 9 mg/dL (101-645); IMMUNOGLOBULIN G <340 mg/dL (540-1822)
== END ==
LOC: LAB 12:10
PROVIDERS: Allergy & Immunology Allergy
DX: D80.1 Nonfamilial hypogammaglobulinemia (principal)

== ENCOUNTER → 2024-01-03 | Outpatient (CLI) | payer MEDICARE ==
[2024-01-03 15:18] LABS: URINE APPEARANCE CLEAR (CLEAR); URINE BILIRUBIN NEGATIVE (NEGATIVE); URINE BLOOD NEGATIVE (NEGATIVE); URINE COLOR YELLOW (YELLOW); URINE GLUCOSE NEGATIVE (NEGATIVE); URINE KETONE NEGATIVE (NEGATIVE); URINE LEUKOCYTE ESTERASE TRACE (NEGATIVE); URINE NITRATE NEGATIVE (NEGATIVE); URINE PROTEIN(semi-quant) NEGATIVE (NEGATIVE)
[2024-01-03 15:19] LABS: URINE WBC 16-30 /hpf (0-3)
== END ==
LOC: LAB 14:46
PROVIDERS: Nurse Practitioner Family
DX: R34 Anuria and oliguria (principal); M54.50 Low back pain, unspecified; M25.552 Pain in left hip

== ENCOUNTER → 2024-03-03 | Outpatient (CLI) | payer MEDICARE ==
[2024-03-03 07:34] LABS: BASO # 0.01 K/mm3 (0.02-0.10); EOS # 0.07 K/mm3 (0.04-0.40); EOS % 1.5 % (0.0-4.0); HEMATOCRIT 46.8 % (42.0-52.0); LYMPH# 1.67 K/mm3 (1.50-4.00); MEAN CELL VOLUME 94 fl (78-100); MEAN CORPUSCULAR HEMOGLOBIN 32 pg (27-31); MEAN CORPUSCULAR HGB CONC 34 g/dL (33-37); MEAN PLATELET VOLUME 8.9 fl (7.4-10.4); MONO # 0.38 K/mm3 (0.20-0.80); PLATELET COUNT 136 K/mm3 (130-400); RED BLOOD COUNT 4.97 M/mm3 (4.20-5.60); RED CELL DISTRIBUTION WIDTH 12.4 % (11.5-14.5); WHITE BLOOD COUNT 4.6 K/mm3 (4.8-10.8)
[2024-03-03 07:42] LABS: TOTAL PROTEIN 5.5 g/dL (6.2-8.1)
[2024-03-03 07:44] LABS: TOTAL BILIRUBIN 0.8 mg/dL (0.2-1.2)
[2024-03-03 07:49] LABS: MAGNESIUM 1.95 mg/dL (1.60-2.60)
== END ==
LOC: LAB 07:06
PROVIDERS: Internal Medicine
DX: Z00.01 Encounter for general adult medical examination with abnormal findings (principal); Z12.5 Encounter for screening for malignant neoplasm of prostate; Z12.11 Encounter for screening for malignant neoplasm of colon; D80.1 Nonfamilial hypogammaglobulinemia

== ENCOUNTER → 2024-03-09 | Outpatient (CLI) | payer MEDICARE ==
[2024-03-09 09:42] LABS: URINE APPEARANCE CLEAR (CLEAR); URINE BILIRUBIN NEGATIVE (NEGATIVE); URINE BLOOD 1+ (NEGATIVE); URINE COLOR YELLOW (YELLOW); URINE GLUCOSE NEGATIVE (NEGATIVE); URINE KETONE NEGATIVE (NEGATIVE); URINE LEUKOCYTE ESTERASE 1+ (NEGATIVE); URINE NITRATE NEGATIVE (NEGATIVE); URINE PROTEIN(semi-quant) NEGATIVE (NEGATIVE); URINE WBC 16-30 /hpf (0-3)
== END ==
LOC: LAB 09:01
PROVIDERS: Internal Medicine
DX: N39.0 Urinary tract infection, site not specified (principal)